=== PATIENT | female | born 1965 | race Caucasian/White ===

== ENCOUNTER 2023-04-15 09:05 | Outpatient (CLI) | payer BC | END 2023-04-15 09:06 | disposition home or self-care (01) | LOC: CSHULT 09:05 | PROVIDERS: ATTEND Family Medicine Sports Medicine | DX: R10.11 Right upper quadrant pain (principal); K76.0 Fatty (change of) liver, not elsewhere classified | CPT/HCPCS: 76705 ==

== ENCOUNTER 2024-02-25 10:49 | Outpatient (CLI) | payer BC | END 2024-02-25 10:50 | disposition home or self-care (01) | LOC: CSHRAD 10:49 | PROVIDERS: ATTEND Family Medicine Sports Medicine | DX: R07.81 Pleurodynia (principal) ==

== ENCOUNTER 2024-09-29 15:22 | Inpatient (IN) | payer BC ==
[2024-09-29 16:33] LABS: #Basophils 0.08 10x3/uL (0.0-0.2); #Eosinophils 0.16 10x3/uL (0.0-0.5); #Monocytes 1.30 10x3/uL (0.0-1.1); #Neutrophils 5.54 10x3/uL (1.5-8.4); %Basophils 0.7 % (0.0-2.0); %Eosinophils 1.4 % (0.0-6.0); %Lymphocytes 36.1 % (18.0-47.0); %Monocytes 11.7 % (0.0-10.0); %Neutrophils 49.8 % (40.0-75.0); Hematocrit 40.4 % (34.9-44.5); Hemoglobin 13.7 g/dL (12.0-15.5); Mean Corpuscular Hemoglobin 30.5 pg (27.0-33.0); Mean Corpuscular Volume 90.0 fL (81.6-98.3); Platelet Count 291 10x3/uL (150-450); Red Blood Cell (RBC) Count 4.49 10x6/uL (3.90-5.03); White Blood Cell (WBC) Count 11.13 10x3/uL (3.5-10.5)
[2024-09-29 17:03] LABS: ALT (SGPT) 17 U/L (Less than 34); AST (SGOT) 40 U/L (11-34); Albumin 3.6 g/dL (3.1-4.5); Alkaline Phosphatase 87 U/L (40-110); Anion Gap 17 mmol/L (10-20); BUN (Urea Nitrogen) 6 mg/dL (9.8-20.1); Bilirubin, Total 0.8 mg/dL (0.3-1.2); Calc. Creatinine Clearance 0 mL/min (70-130); Calcium 10.3 mg/dL (7.8-10.44); Carbon Dioxide 32 mmol/L (22-29); Globulin 3.9 g/dL (2.4-3.5); Glucose 104 mg/dL (70-105); Magnesium 2.1 mg/dL (1.6-2.6); Sodium 141 mmol/L (136-145)
[2024-09-29 17:11] LABS: Chloride 94 mmol/L (98-107); Potassium 2.1 mmol/L (3.5-5.1)
[2024-09-29] MEDS ORDERED: Potassium Chloride 20 MEQ (100 mL) BAG ONE (17:13)
[2024-09-29] MEDS ORDERED: Acetaminophen 500 MG TAB ONE (17:14)
[2024-09-29] MEDS ORDERED: Acetaminophen 325 MG TAB PO PRN (17:42)
[2024-09-29] MEDS ORDERED: Glucagon 1 MG/ML KIT IM PRN (17:42)
[2024-09-29] MEDS ORDERED: Dextrose 50% Abboject 50 ML SYRINGE SLOW IVP PRN (17:42)
[2024-09-29] MEDS ORDERED: Ondansetron PF 4 MG/2 ML Vial IVP PRN (17:42)
[2024-09-29 18:43] VITALS: BMI 38.2
[2024-09-29] MEDS: Cyclobenzaprine 10 MG TAB PO SCH (21:42)
[2024-09-29 22:23] LABS: Anion Gap 9 mmol/L (10-20); BUN (Urea Nitrogen) 5 mg/dL (9.8-20.1); Calc. Creatinine Clearance 100 mL/min (70-130); Calcium 9.4 mg/dL (7.8-10.44); Carbon Dioxide 35 mmol/L (22-29); Chloride 96 mmol/L (98-107); Glucose 79 mg/dL (70-105); Sodium 138 mmol/L (136-145)
[2024-09-29] MEDS: Simvastatin 10 MG TAB PO SCH (22:29)
[2024-09-29 22:33] LABS: Potassium 2.3 mmol/L (3.5-5.1)
[2024-09-29] MEDS: HYDROcodone/Acetaminophen 5/325 mg Tablet PO SCH (23:21)
[2024-09-29] MEDS: Gabapentin 300 MG CAP PO SCH (23:22)
[2024-09-29] MEDS: Potassium Chloride 20 MEQ in Premix 1 BAG IVPB SCH (23:23)
[2024-09-30 04:19] LABS: #Basophils 0.06 10x3/uL (0.0-0.2); #Eosinophils 0.32 10x3/uL (0.0-0.5); #Monocytes 1.37 10x3/uL (0.0-1.1); #Neutrophils 5.11 10x3/uL (1.5-8.4); %Basophils 0.5 % (0.0-2.0); %Eosinophils 2.9 % (0.0-6.0); %Lymphocytes 37.1 % (18.0-47.0); %Monocytes 12.5 % (0.0-10.0); %Neutrophils 46.7 % (40.0-75.0); Hematocrit 39.0 % (34.9-44.5); Hemoglobin 13.0 g/dL (12.0-15.5); Mean Corpuscular Hemoglobin 30.3 pg (27.0-33.0); Mean Corpuscular Volume 90.9 fL (81.6-98.3); Platelet Count 251 10x3/uL (150-450); Red Blood Cell (RBC) Count 4.29 10x6/uL (3.90-5.03); White Blood Cell (WBC) Count 10.96 10x3/uL (3.5-10.5)
[2024-09-30 04:33] LABS: Anion Gap 10 mmol/L (10-20); BUN (Urea Nitrogen) 5 mg/dL (9.8-20.1); Calc. Creatinine Clearance 99 mL/min (70-130); Calcium 8.8 mg/dL (7.8-10.44); Carbon Dioxide 34 mmol/L (22-29); Chloride 99 mmol/L (98-107); Glucose 86 mg/dL (70-105); Magnesium 2.1 mg/dL (1.6-2.6); Potassium 2.7 mmol/L (3.5-5.1); Sodium 140 mmol/L (136-145)
[2024-09-30] MEDS ORDERED: VONOPRAZAN FUMARATE 20 MG PO SCH (09:00)
[2024-09-30] MEDS: Potassium Chloride 20 MEQ in Premix 1 BAG IVPB SCH (09:54)
[2024-09-30] MEDS: Enoxaparin 40 MG (0.4 mL) SYRINGE SC SCH (10:02)
[2024-09-30] MEDS: Cholecalciferol 1,000 UNITS (25 MCG) TAB PO SCH (10:03)
[2024-09-30] MEDS: Multivitamin W/ Minerals 1 TAB PO SCH (10:03)
[2024-09-30] MEDS: BuPROPion XL 150 MG ER.TAB PO SCH (10:04)
[2024-09-30] MEDS: Gabapentin 300 MG CAP PO SCH (10:04)
[2024-09-30] MEDS: Cyanocobalamin (Vitamin B-12) 1,000 MCG TAB PO SCH (10:04)
[2024-09-30] MEDS: Losartan 50 MG TAB PO SCH (10:05)
[2024-09-30 15:22] VITALS: TEMP 97.8
[2024-09-30 17:28] LABS: Anion Gap 15 mmol/L (10-20); BUN (Urea Nitrogen) 5 mg/dL (9.8-20.1); Calc. Creatinine Clearance 103 mL/min (70-130); Calcium 8.6 mg/dL (7.8-10.44); Carbon Dioxide 30 mmol/L (22-29); Chloride 104 mmol/L (98-107); Glucose 83 mg/dL (70-105); Potassium 3.9 mmol/L (3.5-5.1); Sodium 145 mmol/L (136-145)
[2024-09-30 20:38] VITALS: BP 112/69
[2024-09-30] MEDS ORDERED: Simvastatin 10 MG TAB PO SCH (21:00)
== END 2024-09-30 21:05 | disposition home or self-care (01) | DRG 641 ==
LOC: CSHERS 15:22 → SUATTDRO 15:22 → CSHTELE 17:42
PROVIDERS: ADMIT Family Medicine; ATTEND Family Medicine
DX: E87.6 Hypokalemia (principal); M19.90 Unspecified osteoarthritis, unspecified site; E11.9 Type 2 diabetes mellitus without complications; K21.9 Gastro-esophageal reflux disease without esophagitis; E78.5 Hyperlipidemia, unspecified; F32.A Depression, unspecified; F41.9 Anxiety disorder, unspecified; Z90.49 Acquired absence of other specified parts of digestive tract; Z79.899 Other long term (current) drug therapy; Z90.710 Acquired absence of both cervix and uterus; Z79.84 Long term (current) use of oral hypoglycemic drugs
CPT/HCPCS: 36415; 36416; 80048; 83036; 83735; 84100; 84443; 85025; 93005; 94760; 96365; J1650; J3480

== ENCOUNTER 2025-01-04 13:01 | Outpatient (CLI) | payer BC | END 2025-01-04 13:02 | disposition home or self-care (01) | LOC: CSHRAD 13:01 | PROVIDERS: ATTEND Family Medicine Sports Medicine | DX: M25.562 Pain in left knee (principal); R07.89 Other chest pain | CPT/HCPCS: 71046 ==